=== PATIENT | female | born 1995 | race Caucasian/White ===

== ENCOUNTER 2018-10-12 22:46 | Emergency (ER) | payer OTHER ==
--- NOTE | 2018-10-13 00:34 | ED ---
Lower Extremity - HPI Summary HPI Summary: Complains of right knee pain after her right knee locked up while she was running today. Patient states she felt her knee lock up when she landed on her right leg, with subsequent pain. Patient states she then fell over but denies any injury or symptoms from fall. The pain worse with flexion and extension of the knee. - History of Current Complaint Chief Complaint: EDExtremityLower Stated Complaint: RT KNEE INJURY PER PT Time Seen by Provider: 10/12/18 23:41 Hx Obtained From: Patient Mechanism Of Injury: Other Onset of Pain: Immediate Onset/Duration: Hours Severity Initially: Mild Severity Currently: Mild Pain Intensity: 2 Pain Scale Used: 0-10 Numeric Timing: Intermittent Location: Is Discrete @ Character Of Pain: Throbbing Associated Signs And Symptoms: Positive: Knee Pain Aggravating Factor(s): Standing, Movement, Weight Bearing Alleviating Factor(s): Rest Able to Bear Weight: Yes - Allergies/Home Medications Allergies/Adverse Reactions: Allergies Allergy/AdvReac Type Severity Reaction Status Date / Time amoxicillin Allergy Hives Verified 10/12/18 22:58 Penicillins Allergy Hives Verified 10/12/18 22:58 PMH/Surg Hx/FS Hx/Imm Hx Endocrine/Hematology History: Denies: Hx Anticoagulant Therapy Cardiovascular History: Denies: Hx Pacemaker/ICD History: Denies: Hx Dialysis Sensory History: Denies: Hx Eye Prosthesis Opthamlomology History: Denies: Hx Legally Blind EENT History: Denies: Hx Deafness Neurological History: Denies: Hx Dementia Psychiatric History: Denies: Hx Autism - Immunization History Date of Tetanus Vaccine: unk Date of Influenza Vaccine: unk Infectious Disease History: No Infectious Disease History: Denies: Traveled Outside the [place] in Last 30 Days - Social History Alcohol Use: Weekly Alcohol Amount: pt states was drinking today, states drinks 2x/week Substance Use Type: Reports: None Substance Use Comment - Amount & Last Used: unknown Smoking Status (MU): Never Smoked Tobacco Review of Systems Constitutional: Negative Eyes: Negative ENT: Negative Cardiovascular: Negative Respiratory: Negative Gastrointestinal: Negative Genitourinary: Negative Musculoskeletal: Other Skin: Negative Neurological: Negative Psychological: Normal All Other Systems Reviewed And Are Negative: Yes Physical Exam - Summary Physical Exam Summary: No swelling, erythema, ecchymosis, deformity, extra warmth noted to right knee. Full range of motion with some minimal pain. Pain at anterior knee with palpation. Nontender. PMS intact distally. Triage Information Reviewed: Yes Vital Signs On Initial Exam: Initial Vitals Temp Pulse Resp BP Pulse Ox 98.9 F 101 16 114/73 96 10/12/18 22:57 10/12/18 22:57 10/12/18 22:57 10/12/18 22:57 10/12/18 22:57 Vital Signs Reviewed: Yes Appearance: Positive: Well-Appearing Skin: Positive: Warm Head/Face: Positive: Normal Head/Face Inspection Eyes: Positive: Normal Neck: Positive: Supple Respiratory/Lung Sounds: Positive: Clear to Auscultation Cardiovascular: Positive: Normal Abdomen Description: Positive: Nontender Musculoskeletal: Positive: Normal Neurological: Positive: Normal Psychiatric: Positive: Normal AVPU Assessment: Alert - Dony Coma Scale Best Eye Response: 4 - Spontaneous Best Motor Response: 6 - Obeys Commands Best Verbal Response: 5 - Oriented Coma Scale Total: 15 Diagnostics - Vital Signs Vital Signs Temp Pulse Resp BP Pulse Ox 10/13/18 00:14 0 F 0 0 0/0 0 10/12/18 22:57 98.9 F 101 16 114/73 96 - Laboratory Lab Statement: Any lab studies that have been ordered have been reviewed, and results considered in the medical decision making process. Lower Extremity Course/Dx - Course Course Of Treatment: Complains of right knee pain after her right knee locked up while she was running today. Patient states she felt her knee lock up when she landed on her right leg, with subsequent pain. Patient states she then fell over but denies any injury or symptoms from fall. The pain worse with flexion and extension of the knee. Physical exam:No swelling, erythema, ecchymosis, deformity, extra warmth noted to right knee. Full range of motion with some minimal pain. Pain at anterior knee with palpation. Nontender. PMS intact distally. Vital signs within normal limits. X-ray negative for acute process. Diagnosis knee strain. Rest, ice, ibuprofen. - Diagnoses Provider Diagnoses: Knee pain, acute Discharge - Sign-Out/Discharge Documenting (check all that apply): Patient Departure Patient Received Moderate/Deep Sedation with Procedure: No - Discharge Plan Condition: Stable Disposition: HOME Patient Education Materials: Knee Pain (ED) Referrals: No Primary Care Phys,NOPCP [Primary Care Provider] - Omid Sky MD [Medical Doctor] - Additional Instructions: Rest, ice and ibuprofen for right knee pain. If symptoms persist more than 4 or 5 days follow-up with orthopedics Dr. Perez for further evaluation. Return to the ED for any new or worsening symptoms. - Billing Disposition and Condition Condition: STABLE Disposition: Home
[2018-10-13 00:46] VITALS: BP 103/69
== END 2018-10-13 00:46 | disposition home or self-care (01) ==
LOC: ED 22:46
DX: M25.561 Pain in right knee (principal); Z88.0 Allergy status to penicillin
CPT/HCPCS: 99282